=== PATIENT | female | born 1990 ===

== ENCOUNTER 2017-02-18 03:51 | Emergency (ER) | payer OTHER ==
[2017-02-18 04:15] VITALS: RESP 18
[2017-02-18] MEDS ORDERED: Sodium Chloride 0.9% 1,000 ML IV ONE (04:24)
[2017-02-18] MEDS ORDERED: Morphine 4 MG/ML VIAL ONE (04:32)
[2017-02-18] MEDS ORDERED: Sodium Chloride 0.9% 1,000 ML ONE (04:32)
[2017-02-18 04:33] LABS: RBC URINE 2 /hpf (0-3); URINE BILIRUBIN NEGATIVE (NEGATIVE); URINE BLOOD 2+ (NEGATIVE); URINE COLOR Yellow (YELLOW); URINE GLUCOSE (UA) NORMAL (Normal); URINE KETONE NEGATIVE (NEGATIVE); URINE LEUKOCYTE ESTERASE NEG Leu/uL (Negative); URINE PROTEIN NEGATIVE (NEGATIVE); URINE UROBILINOGEN NORMAL mg/dL (0.2-1.0); WBC URINE 2 /hpf (0-5)
[2017-02-18 04:37] LABS: BASO # 0.1 K/uL (0.0-0.2); BASO % 0.4 % (0.0-2.0); EOS # 0.2 K/uL (0.0-0.7); EOS % 1.5 % (0.0-4.0); HEMATOCRIT 35.8 % (34.0-47.0); LYMPH # 4.6 K/uL (1.0-4.3); LYMPH % 28.4 % (20.0-40.0); MEAN CORPUSCULAR HEMOGLOBIN 27.3 pg (27.0-31.0); MEAN CORPUSCULAR HGB CONC 33.3 g/dL (33.0-37.0); MEAN PLATELET VOLUME 9.5 fL (7.2-11.7); MONO # 1.4 K/uL (0.0-0.8); MONO % 8.7 % (0.0-10.0); RED CELL DISTRIBUTION WIDTH 16.6 % (11.5-14.5); WHITE BLOOD COUNT 16.1 K/uL (4.8-10.8)
[2017-02-18 04:39] LABS: CHLORIDE 100 mmol/L (98-107)
[2017-02-18 04:40] LABS: POTASSIUM 3.7 mmol/L (3.6-5.2); SODIUM 133 mmol/L (132-148)
[2017-02-18 04:42] LABS: GFR AFRICAN-AMERICAN > 60
[2017-02-18 04:43] LABS: ALKALINE PHOSPHATASE 40 U/L (38-126); ALT/SGPT 26 U/L (9-52); AST/SGOT 28 U/L (14-36); BILIRUBIN,TOTAL 0.3 mg/dL (0.2-1.3); BLOOD UREA NITROGEN 11 mg/dL (7-17); CALCIUM 9.7 mg/dl (8.6-10.4); CARBON DIOXIDE 21 mmol/L (22-30); GLUCOSE,RANDOM 85 mg/dL (65-105); TOTAL PROTEIN 8.1 g/dL (6.3-8.3)
--- NOTE | 2017-02-18 05:50 | C.PDOC ---
History Of Present Illness 26 y/o female c/o colicky LLQ abdominal pain that radiates from her left flank since yesterday. Pain makes her nauseous with episodes of vomiting. Pain comes in waves. Denies fever, chills, dysuria, vaginal bleeding or discharge. Time Seen by Provider: 02/18/17 04:04 Chief Complaint (Nursing): Abdominal Pain History Per: Patient History/Exam Limitations: no limitations Onset/Duration Of Symptoms: Days Current Symptoms Are (Timing): Still Present Severity: Mild Location Of Pain/Discomfort: LLQ Radiation Of Pain To:: Flank (left) Quality Of Discomfort: "Pain" Associated Symptoms: denies: Fever, Chills Recent travel outside of the [place]: No Additional History Per: Patient Past Medical History Reviewed: Historical Data, Nursing Documentation, Vital Signs Vital Signs: Last Vital Signs Temp 97.8 F 02/18/17 06:00 Pulse 60 02/18/17 06:00 Resp 18 02/18/17 06:00 BP 114/75 02/18/17 06:00 Pulse Ox 99 02/18/17 06:00 Surgical History: Tonsillectomy Family History: States: Unknown Family Hx - Social History Hx Alcohol Use: Yes Hx Substance Use: No - Immunization History Hx Tetanus Toxoid Vaccination: No Hx Influenza Vaccination: No Hx Pneumococcal Vaccination: No Review Of Systems Except As Marked, All Systems Reviewed And Found Negative. Constitutional: Negative for: Fever, Chills Gastrointestinal: Positive for: Nausea, Vomiting, Abdominal Pain (LLQ) Genitourinary: Positive for: Other (Left flank pain). Negative for: Dysuria, Vaginal Discharge, Vaginal Bleeding Physical Exam - Physical Exam Appears: Non-toxic, No Acute Distress Skin: Warm, Dry Head: Atraumatic, Normacephalic Cardiovascular: Rhythm Regular Respiratory: Normal Breath Sounds, No Rales, No Rhonchi, No Wheezing Gastrointestinal/Abdominal: Soft, Tenderness (Mild LLQ tenderness) Back: No CVA Tenderness, No Vertebral Tenderness (no pain to the costovertebral angle tenderness) Neurological/Psych: Oriented x3 ED Course And Treatment - Laboratory Results Result Diagrams: 02/18/17 04:34 02/18/17 04:34 Lab Interpretation: Abnormal (few RBC's in urine) Urine POC: Negative O2 Sat by Pulse Oximetry: 100 (RA) Pulse Ox Interpretation: Normal - CT Scan/US CT Abd/Pel w/o contrast Other Rad Studies (CT/US): Interpreted By Me, Read By Radiologist CT/US Interpretation: Mild left hydronephrosis and perinephric stranding with probable distal left ureteral calculi/UVJ. Progress Note: IVF, morphine 4 IV due to multiple allergies to NSAIDS/tylenol Reevaluation Time: 06:07 Reassessment Condition: Improved Medical Decision Making Medical Decision Making: Plans: * Pepcid * Morphine * Zofran * IV fluids * Blood labs * UA * CT Abd w/o contrast 0610: L ureteral colic, 3 mm stone @ UVJ Disposition Doctor Will See Patient In The: Office Counseled Patient/Family Regarding: Studies Performed, Diagnosis - Disposition Disposition: HOME/ ROUTINE Disposition Time: 06:08 Condition: GOOD Forms: [facility] (Mauritian) - Clinical Impression Clinical Impression: Ureteral colic - Scribe Statement The provider has reviewed the documentation as recorded by the Scribe Darius [email or web address] All medical record entries made by the Scribe were at my direction and personally dictated by me. I have reviewed the chart and agree that the record accurately reflects my personal performance of the history, physical exam, medical decision making, and the department course for this patient. I have also personally directed, reviewed, and agree with the discharge instructions and disposition.
[2017-02-18 06:02] VITALS: BP 114/75; PULSE 60; TEMP 97.8
[2017-02-18 06:09] VITALS: O2SAT 100
--- NOTE | 2017-02-18 08:36 | CT ---
PROCEDURE: CT Abdomen and Pelvis without intravenous contrast HISTORY: LLQ colic, vomiting, ? renal colic COMPARISON: None. TECHNIQUE: Without contrast.. Contrast Dose: 0 Radiation dose: Total exam DLP = 455.74 mGy-cm. This CT exam was performed using one or more of the following dose reduction techniques: Automated exposure control, adjustment of the mA and/or kV according to patient size, and/or use of iterative reconstruction technique. FINDINGS: LOWER THORAX: Unremarkable. LIVER: Unremarkable. No gross lesion or ductal dilatation. GALLBLADDER AND BILE DUCTS: Unremarkable. PANCREAS: Unremarkable. No gross lesion or ductal dilatation. SPLEEN: Unremarkable. ADRENALS: Unremarkable. No mass. KIDNEYS AND URETERS: Mild left hydronephrosis and hydroureter. 4 mm obstructing calculus at the left ureterovesical junction. There is mild left periureteric stranding. There are very small bilateral nonobstructing renal calculi. No renal mass. No right hydronephrosis. VASCULATURE: Unremarkable. No aortic aneurysm. BOWEL: Unremarkable. No obstruction. No gross mural thickening. APPENDIX: Unremarkable. Normal appendix. PERITONEUM: Unremarkable. No free fluid. No free air. LYMPH NODES: Unremarkable. No enlarged lymph nodes. BLADDER: Nondistended REPRODUCTIVE: Normal uterus BONES: Mild thoracolumbar levoscoliosis. OTHER FINDINGS: None. IMPRESSION: Obstructing 4 mm calculus at left ureterovesical junction. Very small bilateral nonobstructing renal calculi. No other acute abnormality. Preliminary interpretation of this examination was reported by [employer] at 5:40 a.m. on 02/18/2017. There is concurrence of this report with the preliminary interpretation.
== END 2017-02-18 06:22 | disposition home or self-care (01) ==
LOC: C.ER 03:51
DX: N13.2 Hydronephrosis with renal and ureteral calculous obstruction (principal)
CPT/HCPCS: 74176; 80053; 81001; 83690; 84703; 85025; 96361; 96374; 96375; 99285; J2270; J2405; J7040

== ENCOUNTER 2017-02-19 12:04 | Emergency (ER) | payer OTHER ==
[2017-02-19 12:28] VITALS: BP 123/83; PULSE 78; TEMP 97.8; O2SAT 98
--- NOTE | 2017-02-19 12:39 | C.PDOC ---
History Of Present Illness 26yo female, presents to the ED requesting a medication refill. Patient was seen in this facility yesterday and was diagnosed with renal colic and given Tramadol for her pain. Patient presents today due to continued pain and states she has already taken majority of her pain medications. Of note, patient is allergic to Tylenol and NSAIDS. Patient reports she has a scheduled urologist appointment tomorrow. [facility] was consulted and patient has no history of prescription drug abuse. Time Seen by Provider: 02/19/17 12:18 Chief Complaint (Nursing): Med Refill History Per: Patient History/Exam Limitations: no limitations Onset/Duration Of Symptoms: Days Current Symptoms Are (Timing): Still Present Reports Recently: Seen In ED Past Medical History Reviewed: Historical Data, Nursing Documentation, Vital Signs Vital Signs: Last Vital Signs Temp 97.8 F 02/19/17 12:15 Pulse 78 02/19/17 12:15 Resp 20 02/19/17 12:15 BP 123/83 02/19/17 12:15 Pulse Ox 98 02/19/17 12:45 - Medical History PMH: Kidney Stones, Chronic Kidney Disease Surgical History: Tonsillectomy Family History: States: No Known Family Hx, Unknown Family Hx - Social History Hx Alcohol Use: Yes Hx Substance Use: No - Immunization History Hx Tetanus Toxoid Vaccination: No Hx Influenza Vaccination: No Hx Pneumococcal Vaccination: No Review Of Systems Except As Marked, All Systems Reviewed And Found Negative. Cardiovascular: Negative for: Chest Pain Respiratory: Negative for: Shortness of Breath Gastrointestinal: Negative for: Abdominal Pain Physical Exam - Physical Exam Appears: Non-toxic, No Acute Distress Cardiovascular: Rhythm Regular, No Murmur Respiratory: Normal Breath Sounds, No Wheezing Gastrointestinal/Abdominal: Bowel Sounds, Soft, No Tenderness ED Course And Treatment O2 Sat by Pulse Oximetry: 98 (RA) Pulse Ox Interpretation: Normal Medical Decision Making Medical Decision Making: Impression: 26yo female w/ diagnosis of renal colic presents for medication refill Plan: -- Patient states she took a dose of Tramadol prior to arrival. Pt to be given prescription for tramadol and instructed to follow up tomorrow as scheduled without fail. Disposition Counseled Patient/Family Regarding: Diagnosis, Need For Followup - Disposition Referrals: Kenny Mancilla MD [Staff Provider] - Disposition Time: 12:40 Additional Instructions: FOLLOW UP WITH UROLOGY TOMORROW SCHEDULED USE MEDICATIONS NEEDED FOR PAIN RETURN TO ER IF SYMPTOMS WORSEN Prescriptions: traMADol [Ultram] 100 mg PO Q6 #16 tab Forms: [facility] (Swiss), General Discharge Instructions Print Language: SLOVENIAN - Clinical Impression Clinical Impression: Medication refill, Renal colic - Scribe Statement Collette Alfredo Provider Attestation: All medical record entries made by the Brieibe were at my direction and personally dictated by me. I have reviewed the chart and agree that the record accurately reflects my personal performance of the history, physical exam, medical decision making, and the department course for this patient. I have also personally directed, reviewed, and agree with the discharge instructions and disposition.
[2017-02-19 12:58] VITALS: RESP 18
== END 2017-02-19 12:58 | disposition home or self-care (01) ==
LOC: C.ER 12:04
DX: Z76.0 Encounter for issue of repeat prescription (principal); N20.0 Calculus of kidney; Z87.442 Personal history of urinary calculi

== ENCOUNTER 2017-02-24 12:43 | Emergency (ER) | payer OTHER ==
[2017-02-24 12:53] VITALS: BP 123/79; PULSE 92; RESP 18; TEMP 97.6; O2SAT 98
--- NOTE | 2017-02-24 13:23 | C.PDOC ---
History Of Present Illness pt with recent dx of left kidney stone here in ED on 02/18, returns to ED for refill of Tramadol. pt has multiple allergies to nsaids and tylenol and has been taking Tramadol for her pain, received refill here in ED on 02/19. pt seen by Dr Mccabe on 02/20, and started on flomax and cefuroxime, but did not get refill of pain medication. pt took last dose 230 am last night and presents to ED with recurring pain. discussed with Dr Mccabe, will write pt for enough pain medication until her appt with him on . Time Seen by Provider: 02/24/17 12:53 Chief Complaint (Nursing): Med Refill History Per: Patient, Family History/Exam Limitations: no limitations Onset/Duration Of Symptoms: Days (1) Current Symptoms Are (Timing): Still Present Severity: Moderate Pain Scale Rating Of: 8 Reports Recently: Seen In ED, Treated By A Physician Recent travel outside of the [place]: No Past Medical History Reviewed: Historical Data, Nursing Documentation, Vital Signs Vital Signs: Last Vital Signs Temp 97.6 F 02/24/17 12:46 Pulse 92 H 02/24/17 12:46 Resp 18 02/24/17 13:36 BP 123/79 02/24/17 12:46 Pulse Ox 98 02/24/17 13:35 - Medical History PMH: Kidney Stones, Chronic Kidney Disease Surgical History: Tonsillectomy Family History: States: Unknown Family Hx - Social History Hx Alcohol Use: Yes Hx Substance Use: No - Immunization History Hx Tetanus Toxoid Vaccination: No Hx Influenza Vaccination: No Hx Pneumococcal Vaccination: No Review Of Systems Constitutional: Negative for: Fever, Chills Cardiovascular: Negative for: Chest Pain Respiratory: Negative for: Cough Gastrointestinal: Positive for: Nausea, Vomiting, Other (left flank pain) Genitourinary: Negative for: Dysuria, Pelvic Pain Physical Exam - Physical Exam Appears: Non-toxic, Other (appears uncomfortable. ) Skin: Warm, Dry Neck: Normal ROM Cardiovascular: Rhythm Regular, No Murmur Respiratory: Normal Breath Sounds, Decreased Breath Sounds, No Rales, No Rhonchi , No Wheezing Gastrointestinal/Abdominal: Bowel Sounds, Soft, No Tenderness Back: No CVA Tenderness ED Course And Treatment O2 Sat by Pulse Oximetry: 98 Medical Decision Making Medical Decision Makin y.o female with 4 mm obstructing uvj stone on left side with persistent pain. pt has multiupole allergies, has been taking tramadol for pain. discussed with Dr Barrera, will redill tramadol for last itme in ED; she will see him in office on as scheduled. Disposition Discussed With Dr.: Kenny Mancilla Doctor Will See Patient In The: Office Counseled Patient/Family Regarding: Diagnosis, Need For Followup, Rx Given - Disposition Referrals: Kenny Mancilla MD [Staff Provider] - Disposition: HOME/ ROUTINE Disposition Time: 13:32 Condition: STABLE Additional Instructions: Please follow up with Dr Mancilla on Saturday as scheduled. Continue to take antibiotics and Flomax as prescribed. Take Trsamadol as prescrbied, do not drive with this medication. Prescriptions: traMADol [Ultram] 100 mg PO Q6 #16 tab Instructions: Renal Colic (ED) Forms: [facility] (Uzbek), General Discharge Instructions - Clinical Impression Clinical Impression: Renal colic, Medication refill
== END 2017-02-24 13:38 | disposition home or self-care (01) ==
LOC: C.ER 12:43
DX: Z76.0 Encounter for issue of repeat prescription (principal); N20.0 Calculus of kidney; Z87.442 Personal history of urinary calculi